=== PATIENT | male | born 1960 | race African-American/Black ===

== ENCOUNTER 2017-07-17 12:08 | Emergency (ER) | payer MEDICAID ==
[~2017-07-17] VITALS: Ht 188 cm; Wt 106.6 kg
[~2017-07-17 12:08] MED LIST: AMLO10TA88 PO; LISI40TA4 PO
[2017-07-17 12:10] VITALS: BP_SYST 176
[2017-07-17] MEDS ORDERED: KETOROLAC TROMETHAMINE 60 MG/2 ML VIAL IM ONE (13:15)
[2017-07-17 14:02] VITALS: BP_SYST 148
== END 2017-07-17 13:59 | disposition home or self-care (01) ==
LOC: SED 12:08
DX: S33.9XXA Sprain of unspecified parts of lumbar spine and pelvis, initial encounter (principal); M54.10 Radiculopathy, site unspecified; I10 Essential (primary) hypertension; V43.52XA Car driver injured in collision with other type car in traffic accident, initial encounter; Y93.89 Activity, other specified; Y92.410 Unspecified street and highway as the place of occurrence of the external cause; Y99.8 Other external cause status
CPT/HCPCS: 72110; 96372; 99284; J1885

== ENCOUNTER 2018-02-19 13:04 | Emergency (ER) | payer MEDICAID ==
[~2018-02-19] VITALS: Ht 188 cm; Wt 95.3 kg
[2018-02-19 13:05] VITALS: BP_SYST 203
[2018-02-19] MEDS ORDERED: HYDROcodone/ACETAMIN 7.5-325 MG TAB PO ONE (13:30)
[2018-02-19] MEDS ORDERED: LORazepam 1 MG TABLET PO ONE (13:30)
[2018-02-19 13:59] LABS: BASOPHILS # (AUTO) 0.1 K/uL (0.0-0.2); BASOPHILS % (AUTO) 1.5 % (0.0-2.0); EOSINOPHILS % (AUTO) 0.3 % (0.0-4.0); HEMATOCRIT 50.7 % (36-54); LYMPHOCYTES % (AUTO) 31.4 % (20.5-51.5); MEAN CORPUSCULAR HEMOGLOBIN 35 pg (27-31); MEAN CORPUSCULAR HGB CONC 34 % (32-36); MEAN CORPUSCULAR VOLUME 104 fL (79.0-98.0); MONOCYTES # (AUTO) 0.5 K/uL (0.0-1.0); MONOCYTES % (AUTO) 7.7 % (1.7-9.3); NEUTROPHILS # (AUTO) 3.8 K/uL (1.8-7.7); NEUTROPHILS % (AUTO) 59.1 % (40.0-70.0); PLATELET COUNT (AUTO) 209 K/uL (130-430); RED BLOOD CELL COUNT(AUTO) 4.88 MIL/uL (4.2-6.2); RED CELL DISTRIBUTION WIDTH 12.6 % (9.0-15.0); WHITE BLOOD COUNT (AUTO) 6.4 K/uL (4.8-10.8)
[2018-02-19 14:08] LABS: CALCIUM 8.9 mg/dL (8.4-11.0); CREATININE 1.06 mg/dL (0.55-1.30); POTASSIUM 3.8 mmol/L (3.5-5.1)
[2018-02-19 14:11] LABS: INR 1.2 (0.80-1.20); PROTHROMBIN TIME 12.1 SECS (9.5-12.5)
[2018-02-19 14:23] LABS: ALBUMIN 4.3 g/dL (3.4-4.8); FREE T4 (FREE THYROXINE) 0.4 ng/dL (0.6-1.6); THYROID STIMULATING HORMONE 2.25 uIu/mL (0.34-4.82); TOTAL BILIRUBIN 1.7 mg/dL (0.0-1.0)
[2018-02-19] MEDS ORDERED: NACL 0.9% 1,000 ML IV ONE (14:45)
[2018-02-19 14:48] LABS: BILIRUBIN,URINE 1+ (NEGATIVE); BLOOD, URINE 1+ (NEGATIVE); CLARITY/URINE CLEAR (CLEAR); COLOR,URINE AMBER (YELLOW); GLUCOSE,URINE NEGATIVE (NEGATIVE); KETONES,URINE TRACE (NEGATIVE); LEUKOCYTE ESTERASE ,URINE TRACE (NEGATIVE); PH,URINE 5.5 (5.0-8.0); PROTEIN URINE 2+ (NEGATIVE)
[2018-02-19 14:55] LABS: NITRITE, URINE POSITIVE (NEGATIVE)
[2018-02-19 14:58] LABS: BARBITURATE, URINE NEGATIVE (NEG <=200); BENZODIAZEPINE, URINE NEGATIVE (NEG <=150); CANNABINOID, URINE NEGATIVE (NEG <=50); COCAINE, URINE NEGATIVE (NEG <=150); METHAMPHETAMINES SCREEN,URINE NEGATIVE (NEG <=500); OPIATE, URINE NEGATIVE (NEG <=100); PHENCYCLIDINE SCREEN,URINE NEGATIVE (NEG <=25); UR TRICYCLIC ANTIDEPRESSANTS NEGATIVE (NEG <=300); URINE AMPHETAMINE NEGATIVE (NEG <=500); URINE METHADONE NEGATIVE (NEG <=200); URINE OXYCODONE SCREEN NEGATIVE (NEG <=100); URINE PROPOXYPHENE SCREEN NEGATIVE (NEG <=300)
[2018-02-19 15:26] LABS: BACTERIA,URINE FEW /HPF (None Seen); MUCUS,URINE 2+ /LPF (None Seen)
[2018-02-19 17:29] VITALS: BP_SYST 185
== END 2018-02-19 17:30 | disposition home or self-care (01) ==
LOC: SED 13:04
DX: I16.0 Hypertensive urgency (principal); F10.129 Alcohol abuse with intoxication, unspecified; M54.5 Low back pain; G89.29 Other chronic pain
CPT/HCPCS: 36415; 71045; 74018; 80053; 80307; 81000; 84439; 84443; 84484; 85025; 85610; 85730; 87086; 93005; 99285; G0482; J7030